=== PATIENT | male | born 1965 | race African-American/Black ===

== ENCOUNTER 2020-04-12 14:08 | Emergency (ER) | END 2020-04-12 14:32 | disposition left against medical advice (07) | LOC: ER 14:08 | DX: Z53.21 Procedure and treatment not carried out due to patient leaving prior to being seen by health care provider (principal) ==

== ENCOUNTER 2020-04-12 16:24 | Emergency (ER) | payer SELFPAY ==
--- NOTE | 2020-04-12 17:16 | ER Document Report ---
ED Medical Screen (RME) - General Chief Complaint: Psych Problem Stated Complaint: PSYCH Time Seen by Provider: 04/12/20 16:57 Mode of Arrival: Wheelchair Information source: Patient Notes: 54-year-old male patient presented to the emergency department in need of psychiatric care. He states he came from [place], he got on a bus and arrived here today. He is a flight of ideas, he believes he is being possessed by something that goes in and out of his body. He states this thing is controlled by other people, he states that he has abdominal pain with that, he states that it has changed the size of his penis, he states that it sometimes makes him feel wilson but other times makes him feel like a woman. Patient denies being on any current medications. He states that the thing that he is possessed by is a clear "blob" that is often controlled by doctors, hydrologic engineer, police and teachers. He also reports that it tells him to hurt himself or other people. Please see nurses note from triage as the patient would not stop talking so was unable to document all of patient's statements. I have greeted and performed a rapid initial assessment of this patient. A comprehensive ED assessment and evaluation of the patient, analysis of test results and completion of the medical decision making process will be conducted by additional ED providers. I have specifically instructed the patient or family members with the patient to immediately return to any nursing staff should anything change in the patient's condition or with their chief complaint. - Related Data Allergies/Adverse Reactions: No Known Allergies Allergy (Unverified 04/12/20 16:55) Physical Exam - Vital signs Vitals: Temp Pulse Resp BP Pulse Ox 98.1 F 85 20 110/72 96 04/12/20 16:39 04/12/20 16:39 04/12/20 16:39 04/12/20 16:39 04/12/20 16:39 Course - Vital Signs Vital signs: Temp Pulse Resp BP Pulse Ox 98.1 F 85 20 110/72 96 04/12/20 16:39 04/12/20 16:39 04/12/20 16:39 04/12/20 16:39 04/12/20 16:39
--- NOTE | 2020-04-12 17:58 | RADIOLOGY REPORT (SQ) ---
EXAM DESCRIPTION: KUB/ABDOMEN (SINGLE VIEW) IMAGES COMPLETED DATE/TIME: 04/12/2020 5:41 pm REASON FOR STUDY: abd pain COMPARISON: None. NUMBER OF VIEWS: One view. TECHNIQUE: Supine radiographic image of the abdomen acquired. LIMITATIONS: Demographics mismatch warning. FINDINGS: BOWEL GAS PATTERN: Nonobstructive gas pattern. Large amount of retained stool. CALCIFICATIONS: No suspicious calcifications. SOFT TISSUES: No gross mass or suggestion of organomegaly. HARDWARE: None in the abdomen. BONES: No acute fracture. No worrisome bone lesions. OTHER: No other significant finding. IMPRESSION: Constipation. TECHNICAL DOCUMENTATION: JOB ID: [id number] [employer]- All Rights Reserved Reading location - IP/workstation name: [email or web address]
[2020-04-12 18:01] LABS: ABSOLUTE EOSINOPHILS # (AUTO) 0.1 10^3/uL (0.0-0.6); ABSOLUTE MONOCYTES (AUTO) 0.3 10^3/uL (0.1-1.4); ABSOLUTE NEUT (AUTO) 3.3 10^3/uL (1.7-8.2); TOTAL CELLS COUNTED % (AUTO) 100 %
[2020-04-12 18:12] LABS: ABSOLUTE LYMPHOCYTES (AUTO) 1.5 10^3/uL (0.5-4.7); BASOPHILS % (AUTO) 0.6 % (0-2); EOSINOPHILS % (AUTO) 2.5 % (0-6); HEMATOCRIT 39.1 % (37.9-51.0); HEMOGLOBIN 13.7 g/dL (13.5-17.0); LYMPHOCYTES % (AUTO) 28.5 % (13-45); MEAN CORPUSCULAR HEMOGLOBIN 31.5 pg (27.0-33.4); MEAN CORPUSCULAR VOLUME 90 fl (80-97); MONOCYTES % (AUTO) 5.2 % (3-13); PLATELET COUNT 174 10^3/uL (150-450); RED BLOOD COUNT 4.35 10^6/uL (4.35-5.55); RED CELL DISTRIBUTION WIDTH 13.3 % (11.5-14.0); SEGMENTED NEUTROPHILS % (AUTO) 63.2 % (42-78); WHITE BLOOD COUNT 5.2 10^3/uL (4.0-10.5)
[2020-04-12] MEDS ORDERED: HALOPERIDOL LACTATE INJ 5 MG/1 ML VIAL IM ONE (18:18)
[2020-04-12] MEDS ORDERED: BENZTROPINE MESYLATE 1 MG TABLET PO ONE (18:18)
[2020-04-12] MEDS ORDERED: LORAZEPAM INJ 2 MG/1 ML VIAL IV ONE (18:19)
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
[2020-04-12 18:25] LABS: ACETAMINOPHEN < 10 ug/mL (10-30); ALBUMIN 4.5 g/dL (3.5-5.0); ALCOHOL 14 mg/dL (NONE DETECTED); ALKALINE PHOSPHATASE 83 U/L (38-126); ANION GAP 10 (5-19); ASPARTATE AMINO TRANSFERASE 30 U/L (17-59); BILIRUBIN,DIRECT 0.2 mg/dL (0.0-0.4); BILIRUBIN,TOTAL 0.8 mg/dL (0.2-1.3); BLOOD UREA NITROGEN 23 mg/dL (7-20); CALCIUM 8.8 mg/dL (8.4-10.2); CARBON DIOXIDE 28 mmol/L (22-30); CHLORIDE 105 mmol/L (98-107); GLUCOSE 104 mg/dL (75-110); POTASSIUM 4.1 mmol/L (3.6-5.0); SALICYLATE < 1.0 mg/dL (2.0-20.0); TOTAL PROTEIN 7.3 g/dL (6.3-8.2)
--- NOTE | 2020-04-12 18:41 | ER Document Report ---
ED General - General Chief Complaint: Psych Problem Stated Complaint: PSYCH Time Seen by Provider: 04/12/20 16:57 Mode of Arrival: Wheelchair Information source: Patient Cannot obtain history due to: Altered mental status Notes: Patient is a 54-year-old male presenting to the emergency department for the second time today. Patient was here several hours ago but refused to stay now is back for evaluation. Patient states that he feels as if someone is inside of him and trying to control him. Patient has a very circuitous thought. Patient states he recently came here from [place]. Patient states that there are spirits that are bothering him similar spirits bothered his brother who is now in residential for life. When asked specifically patient reports recent drug alcohol and tobacco use but does not further explain the sensation of the feeling that someone is inside of him. The remainder of history of present present illness and review of systems is limited secondary to the patient's mental state. TRAVEL OUTSIDE OF THE [place] IN LAST 30 DAYS: No - HPI Onset: Other - unsure Onset/Duration: Persistent Quality of pain: Pressure Severity: Moderate Pain Level: 2 Associated symptoms: Nausea. denies: Diarrhea, Vomiting Exacerbated by: Denies Relieved by: Denies Similar symptoms previously: No Recently seen / treated by doctor: No - Related Data Allergies/Adverse Reactions: No Known Allergies Allergy (Unverified 04/12/20 16:55) Past Medical History - General Information source: Patient - Social History Smoking Status: Current Every Day Smoker Cigarette use (# per day): Yes Chew tobacco use (# tins/day): No Smoking Education Provided: Yes Frequency of alcohol use: Heavy Drug Abuse: Cocaine Lives with: Homeless Family History: None Patient has suicidal ideation: No Patient has homicidal ideation: No Review of Systems - Review of Systems -: Yes ROS unobtainable due to patient's medical condition Physical Exam - Vital signs Vitals: Temp Pulse Resp BP Pulse Ox 98.1 F 85 20 110/72 96 04/12/20 16:39 04/12/20 16:39 04/12/20 16:39 04/12/20 16:39 04/12/20 16:39 - Notes Notes: PHYSICAL EXAMINATION: GENERAL: Patient is a 54-year-old male presenting to the emergency department for abdominal pain/psychiatric evaluation patient on examination does appear to be floridly psychotic HEAD: Atraumatic, normocephalic. EYES: Pupils equal round and reactive to light, extraocular movements intact, sclera anicteric, conjunctiva are normal. ENT: nares patent, oropharynx clear without exudates. Dry mucous membranes. NECK: Normal range of motion, supple without lymphadenopathy, no appreciable JVD LUNGS: Lungs demonstrate scattered rhonchi HEART: Tachycardic rate and rhythm without murmurs ABDOMEN: Soft, nontender, normal bowel sounds. No guarding, no rebound. No masses appreciated. EXTREMITIES: Active full range of motion, no pitting or edema. No cyanosis. 2+ pulses x4 NEUROLOGICAL: No focal neurological deficits. Moves all extremities spontaneously and on command. Psychiatric: Patient demonstrates flight of thought and circuitous thinking the patient is exhibiting paranoid thoughts and hallucinations. SKIN: Warm, Dry, and intact. Normal turgor, no rashes or lesions noted. Course - Re-evaluation Re-evalutation: 04/12/20 18:41 I was able to speak with mental health services Dr. Gresham she recommends Cogentin 1 mg Haldol 5 mg and is agreeable with Ativan 2 mg. Patient will be seen by mental health services for further evaluation and treatment. 04/12/20 19:25 Patient is currently medically cleared for further evaluation treatment and disposition decision as deemed necessary by mental health services. I did speak with mental health services and they have made recommendations for medications for the patient for the next day or so. Patient be reassessed in the morning. Patient is stable at this time. - Vital Signs Vital signs: Temp Pulse Resp BP Pulse Ox 98.5 F 77 18 136/84 H 97 04/12/20 17:16 04/12/20 17:16 04/12/20 17:16 04/12/20 17:16 04/12/20 17:16 - Laboratory Result Diagrams: 04/12/20 17:30 04/12/20 17:30 Laboratory results interpreted by me: 04/12/20 04/12/20 17:30 17:50 BUN 23 H Urine Protein 30 H Urine Ketones TRACE H Urine Urobilinogen 4.0 H Salicylates < 1.0 L Acetaminophen < 10 L - EKG Interpretation by Ks EKG shows normal: Sinus rhythm Rate: Normal Rhythm: NSR When compared to previous EKG there are: Previous EKG unavailable Discharge - Discharge Clinical Impression: Hallucinations, Cocaine abuse, Paranoia Psychosis Qualifiers: Psychosis type: unspecified psychosis type Qualified Code(s): F29 - Unspecified psychosis not due to a substance or known physiological condition Condition: Stable Disposition: PSYCH HOSP/UNIT
[2020-04-12 18:56] LABS: APPEARANCE,URINE SLIGHTLY-CLOUDY; BILIRUBIN,URINE NEGATIVE (NEGATIVE); COLOR,URINE AMBER; GLUCOSE, URINE NEGATIVE (NEGATIVE); KETONES,URINE TRACE mg/dL (NEGATIVE); LEUKOCYTE ESTERASE,URINE NEGATIVE (NEGATIVE); NITRITE,URINE NEGATIVE (NEGATIVE); PROTEIN,URINE 30 mg/dL (NEGATIVE); URINE SPECIFIC GRAVITY 1.026
[2020-04-12 19:04] LABS: ADD MANUAL MICROSCOPIC YES; CALCIUM OXALATE CRYSTALS,UR RARE /HPF
[2020-04-12 19:11] LABS: URINE AMPHETAMINES SCREEN NEGATIVE; URINE BARBITURATES SCREEN NEGATIVE; URINE BENZODIAZEPINES SCREEN NEGATIVE; URINE COCAINE SCREEN UNCONFIRMED POSITIVE; URINE MARIJUANA (THC) SCREEN NEGATIVE; URINE METHADONE SCREEN NEGATIVE; URINE PHENCYCLIDINE SCREEN NEGATIVE
[2020-04-12] MEDS ORDERED: LORAZEPAM 1 MG TABLET PO ONE (19:37)
[2020-04-12] MEDS ORDERED: HALOPERIDOL 5 MG TABLET PO ONE (19:37)
--- NOTE | 2020-04-12 20:11 | EKG REPORT ---
SEVERITY:- NORMAL ECG - SINUS RHYTHM : Confirmed by: Craig Kline MD 12-Apr-2020 20:11:15
[2020-04-12] MEDS ORDERED: CHLORPROMAZINE HCL 50 MG TABLET PO SCH (22:00)
[2020-04-12] MEDS ORDERED: ZIPRASIDONE MESYLATE INJ/PF 20 MG SDV IM ONE (22:23)
[2020-04-13 06:57] VITALS: BP 130/76
[2020-04-13] MEDS ORDERED: BENZTROPINE MESYLATE 1 MG TABLET PO SCH (10:00)
[2020-04-13] MEDS ORDERED: HALOPERIDOL 5 MG TABLET PO SCH (10:00)
[2020-04-13] MEDS ORDERED: HALOPERIDOL LACTATE INJ 5 MG/1 ML VIAL IM ONE ×2 (15:05→17:45)
[2020-04-13] MEDS ORDERED: CHLORPROMAZINE HCL INJ 25 MG/1 ML AMPULE IM ONE (15:06)
[2020-04-13] MEDS ORDERED: BENZTROPINE MESYLATE INJ 2 MG/2 ML AMPULE IM ONE (15:07)
[2020-04-13] MEDS ORDERED: LORAZEPAM INJ 2 MG/1 ML VIAL IM ONE ×2 (15:08→17:45)
[2020-04-13] MEDS ORDERED: CHLORPROMAZINE HCL 50 MG TABLET PO PRN (19:22)
[2020-04-13] MEDS: OLANZAPINE 2.5 MG TABLET PO SCH (23:40)
[2020-04-14] MEDS ORDERED: CHLORPROMAZINE HCL INJ 25 MG/1 ML AMPULE IM ONE (01:00)
[2020-04-14] MEDS ORDERED: DIPHENHYDRAMINE HCL 50 MG/ML VIAL IM ONE (01:00)
[2020-04-14] MEDS ORDERED: KETAMINE HCL INJ 500 MG/10 ML VIAL IM ONE (01:00)
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
[2020-04-14] MEDS: OLANZAPINE 2.5 MG TABLET PO SCH (09:40)
[2020-04-14] MEDS ORDERED: BENZTROPINE MESYLATE 1 MG TABLET PO SCH (10:00)
== END 2020-04-14 13:07 | disposition home or self-care (01) ==
LOC: ER 16:24
DX: F29 Unspecified psychosis not due to a substance or known physiological condition (principal); F14.10 Cocaine abuse, uncomplicated; F22 Delusional disorders; R11.0 Nausea; R10.9 Unspecified abdominal pain; R00.0 Tachycardia, unspecified; F17.210 Nicotine dependence, cigarettes, uncomplicated; Z59.0 Homelessness
CPT/HCPCS: 93005; 99284; 96372; 36415; 80307 ×4; 85025; 80053; 81001; 74018; 93010; J0515; J3230; J1630; J3490 ×2; J2060